=== PATIENT | female | born 1975 ===

== ENCOUNTER → 2017-11-03 | Outpatient (CLI) | payer BC ==
--- NOTE | 2017-11-04 08:38 | RADIOLOGY IMAGING REPORT ---
FACILITY: [facility] PATIENT NAME: VIKI KEBEDE : [id number] MR: [id number] V: [id number] EXAM DATE: ORDERING PHYSICIAN: LISE CHING TECHNOLOGIST: Clarissa Aguayo PROCEDURE:BILATERAL DIGITAL SCREENING MAMMOGRAM WITH CAD ASSISTED INTERPRETATION & 3D TOMOSYNTHESIS COMPARISON:Prior mammograms 10/11/16, 09/30/15, 06/12/14, 04/30/14. INDICATIONS:SCREENING FINDINGS: A small amount of fibroglandular tissue is seen throughout the breasts. There is an area of architectural distortion in the upper outer quadrant of the Right breast best appreciated on the Tomographic Right MLO images 16 through 28 for which Spot compression views and Right breast Ultrasound is recommended. The parenchymal pattern throughout the Left breast has remained stable. DIAGNOSTIC CATEGORY 0--INCOMPLETE: NEED ADDITIONAL IMAGING EVALUATION. RECOMMENDATIONS: ADDITIONAL MAMMOGRAPHIC VIEWS REQUIRED: RIGHT BREAST. ULTRASOUND: RIGHT BREAST. IMPRESSION: BIRADS 0: Incomplete. Additional views of Right breast and Right breast Ultrasound recommended. Dictated by: Lydia Gongora M.D. on 11/03/2017 at 15:11 Transcribed by: LULU on 11/03/2017 at 15:19 Approved by: Lydia Gongora M.D. on 11/04/2017 at 8:37 [facility]
== END ==
LOC: MAMO 01:26
PROVIDERS: ATTEND Family Medicine
DX: Z12.31 Encounter for screening mammogram for malignant neoplasm of breast (principal); R92.8 Other abnormal and inconclusive findings on diagnostic imaging of breast
CPT/HCPCS: 77063; 77067

== ENCOUNTER → 2017-11-25 | Outpatient (CLI) | payer BC ==
--- NOTE | 2017-11-29 11:18 | RADIOLOGY IMAGING REPORT ---
FACILITY: [facility] - [place] PATIENT NAME: VIKI KEBEDE : [id number] MR: [id number] V: [id number] EXAM DATE: [id number] ORDERING PHYSICIAN: LISE CHING TECHNOLOGIST: Clarissa Aguayo PROCEDURE:RIGHT DIGITAL DIAGNOSTIC MAMMOGRAM WITH CAD ASSISTED INTERPRETATION & 3D TOMOSYNTHESIS COMPARISON:Prior mammograms 11/03/17, 10/11/16, 09/30/15 & 06/12/14 as well as 04/30/14. INDICATIONS:FURTHER EVAL HISTORY: Critical architectural distortion Right upper outer breast on screening mammogram. FINDINGS: Mammogram findings: Straight lateral view and Spot compression CC & MLO views obtained of the Right breast. Scattered fibroglandular tissue noted. No discrete architectural distortion seen with Spot compression in the Right upper outer breast in the area of interest. A small asymmetry remains in the posterior Right breast at the approximate 9:30 position in the area of interest on the straight lateral view measuring 6mm. Ultrasound findings: Right breast the entire Right upper outer breast was scanned by myself and the technologist. 3 benign appearing lymph nodes are present at the 10 o'clock position all interest close proximity at posterior depth. One of these lymph nodes may correlate with the persistent asymmetry which remains on the straight lateral mammogram view on current exam. No suspicious architectural distortion or mass seen by Ultrasound. IMPRESSION: BIRADS 3: Likely benign. 6 month Right breast mammogram follow-up recommended including straight lateral view, MLO view and CC view. Dictated by: Emeterio Flowers on 11/25/2017 at 17:08 Transcribed by: LULU on 11/29/2017 at 8:28 Approved by: Lydia Gongora M.D. on 11/29/2017 at 11:17 [facility]
--- NOTE | 2017-11-29 11:18 | RADIOLOGY IMAGING REPORT ---
FACILITY: [facility] - [place] PATIENT NAME: VIKI KEBEDE : [id number] MR: [id number] V: [id number] EXAM DATE: [id number] ORDERING PHYSICIAN: LISE CHING TECHNOLOGIST: Kimber Maya RDMS PROCEDURE:US RIGHT BREAST COMPARISON:None. INDICATIONS:ABNORMAL MAMMO FINDINGS: DIAGNOSTIC CATEGORY 3--PROBABLY BENIGN FINDING. RECOMMENDATIONS: SIX MONTH FOLLOW-UP DIAGNOSTIC MAMMOGRAM: RIGHT BREAST. See Right breast mammogram radiosonde operator as I dictated the Right breast Ultrasound findings on that exam. IMPRESSION: BIRADS 3: Likely benign. Dictated by: Emeterio Flowers on 11/25/2017 at 17:09 Transcribed by: LULU on 11/29/2017 at 8:30 Approved by: Lydia Gongora M.D. on 11/29/2017 at 11:18 [facility]
== END ==
LOC: MAMO 11-21 03:18
PROVIDERS: ATTEND Family Medicine
DX: R92.2 Inconclusive mammogram (principal)
CPT/HCPCS: 77061; 77065